=== PATIENT | female | born 1995 | race Asian ===

== ENCOUNTER 2020-08-08 02:58 | Outpatient (CLI) | payer OTHER ==
[2020-08-08 03:59] LABS: BASOPHILS % (AUTO) 0.6 % (0.0-2.0); EOSINOPHILS # (AUTO) 0.1 K/uL (0.0-0.4); EOSINOPHILS % (AUTO) 0.7 % (0.0-4.0); HEMATOCRIT 36.9 % (36-48); HEMOGLOBIN 11.5 g/dL (12.0-16.0); LYMPHOCYTES # (AUTO) 3.2 K/uL (1.0-5.5); LYMPHOCYTES % (AUTO) 40.6 % (20.5-51.5); MEAN CORPUSCULAR HEMOGLOBIN 20 pg (27-31); MEAN CORPUSCULAR HGB CONC 31 % (32-36); MEAN CORPUSCULAR VOLUME 65 fL (79.0-98.0); MONOCYTES # (AUTO) 0.4 K/uL (0.0-1.0); MONOCYTES % (AUTO) 5.7 % (1.7-9.3); NEUTROPHILS # (AUTO) 4.1 K/uL (1.8-7.7); NEUTROPHILS % (AUTO) 52.4 % (40.0-70.0); PLATELET COUNT (AUTO) 286 K/uL (130-430); RED BLOOD CELL COUNT(AUTO) 5.67 MIL/uL (4.2-6.2); RED CELL DISTRIBUTION WIDTH 16.1 % (9.0-15.0); WHITE BLOOD COUNT (AUTO) 7.8 K/uL (4.8-10.8)
[2020-08-08 04:16] LABS: ALBUMIN 4.2 g/dL (3.4-4.8); CALCIUM 8.8 mg/dL (8.4-11.0); CREATININE 0.66 mg/dL (0.55-1.30); POTASSIUM 3.5 mmol/L (3.5-5.1); THYROID STIMULATING HORMONE 1.26 uIu/mL (0.34-4.82); TOTAL BILIRUBIN 0.7 mg/dL (0.0-1.0)
[2020-08-08 06:01] LABS: ERYTHROCYTE SEDIMENTATION RATE 5 MM/HR (0-20)
== END 2020-08-08 20:45 | disposition home or self-care (01) ==
LOC: SLB 02:58
PROVIDERS: ATTEND Internal Medicine
DX: Z00.01 Encounter for general adult medical examination with abnormal findings (principal); N60.09 Solitary cyst of unspecified breast; R73.9 Hyperglycemia, unspecified; E03.9 Hypothyroidism, unspecified
CPT/HCPCS: 36415; 80053; 80061; 82306; 82607; 84443; 85025; 85651-TC

== ENCOUNTER 2022-09-07 23:03 | Emergency (ER) | payer OTHER ==
[~2022-09-07] VITALS: Ht 157.5 cm; Wt 52.2 kg
--- NOTE | 2022-09-07 23:08 | NUR ---
Patient triaged and placed in ER bed 8. Bed placed in lowest position and side rails up. Report given to SAIDA MARCOS for continuity of care. Instructed patient to notify ED staff for any changes in condition or worsening of symptoms while waiting to be seen by a provider. Patient verbalized understanding.
[2022-09-07 23:09] VITALS: BP_SYST 139
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
--- NOTE | 2022-09-07 23:50 | NUR ---
ER at bedside examining patient.
[2022-09-08] MEDS ORDERED: LIDOCAINE 1% 10 MG/ML, 20 ML MDV SUBCUT ONE
[2022-09-08] MEDS ORDERED: BACITRACIN 1 GM OINT TP ONE ×2 (00:18)
[2022-09-08] MEDS ORDERED: IBUP-1969 PO (00:57)
[2022-09-08 01:17] VITALS: BP_SYST 122
--- NOTE | 2022-09-08 01:18 | NUR ---
Patient given written and verbal discharge instructions and verbalizes understanding. ER MD discussed with patient the results and treatment provided. Patient in stable condition. ID arm band removed. Rx of IBUPROFEN given. Patient educated on pain management and to follow up with PMD. Pain Scale 0/10. Opportunity for questions provided and answered. Medication side effect fact sheet provided.
== END 2022-09-08 01:17 | disposition home or self-care (01) ==
LOC: SED 23:03
DX: S41.112A Laceration without foreign body of left upper arm, initial encounter (principal); S71.112A Laceration without foreign body, left thigh, initial encounter; Z79.899 Other long term (current) drug therapy; W54.0XXA Bitten by dog, initial encounter; Y93.89 Activity, other specified; Y92.89 Other specified places as the place of occurrence of the external cause; Y99.8 Other external cause status
CPT/HCPCS: 99282; 12002; J2001; 99283

== ENCOUNTER 2022-09-12 15:46 | Emergency (ER) | payer OTHER ==
[~2022-09-12] VITALS: Ht 157.5 cm; Wt 49.9 kg
[~2022-09-12 15:46] MED LIST: IBUP-1969 PO
[2022-09-12 15:53] VITALS: BP_SYST 117
[2022-09-12] MEDS ORDERED: BACITRACIN 1 GM OINT TP ONE (16:06)
[2022-09-12] MEDS ORDERED: AMPICILLIN SODIUM/SULBACTAM NA 3 GM in NS 100 ML IV ONE (16:15)
[2022-09-12] MEDS ORDERED: KETOROLAC TROMETHAMINE 30 MG VIAL IVP ONE (16:15)
[2022-09-12] MEDS ORDERED: AMPICILLIN SODIUM/SULBACTAM NA 3 GM VIAL ONE (16:24)
[2022-09-12] MEDS ORDERED: BACI15OI13 TP (16:47)
[2022-09-12 17:42] VITALS: BP_SYST 117
== END 2022-09-12 17:39 | disposition home or self-care (01) ==
LOC: SED 15:46
DX: S41.152A Open bite of left upper arm, initial encounter (principal); Z79.899 Other long term (current) drug therapy; W54.0XXA Bitten by dog, initial encounter; Y93.89 Activity, other specified; Y92.89 Other specified places as the place of occurrence of the external cause; Y99.8 Other external cause status
CPT/HCPCS: 99284; 96365; 96375; J0295; J1885